=== PATIENT | female | born 1990 | race African-American/Black ===

== ENCOUNTER 2018-06-22 07:31 | Emergency (ER) | payer OTHER, SELFPAY ==
[2018-06-22 08:22] LABS: Absolute Lymphocytes (CBC) 3.5 K/uL (0.7-4.9); Absolute Monocytes 0.6 K/uL (0.1-1.3); Basophils % 0.5 % (0-1.3); Eosinophils % 1.6 % (0-4.4); Hematocrit 38.3 % (36.0-45.0); Lymphocytes % 33.8 % (15.3-44.8); MCH 27.5 pg (27.0-35.0); MPV 8.3 fL (7.6-11.3); Monocytes % 6.1 % (3.3-12.3); RBC Red Blood Cell Count 4.68 M/uL (3.86-4.86)
[2018-06-22 08:24] LABS: Urine Bacteria <20 /HPF (<20); Urine RBC <5 /HPF (NONE SEEN)
[2018-06-22 08:25] LABS: Urine Culture Reflex Order NOT NEEDED; Urine Mucus 3+ /HPF (NONE SEEN)
[2018-06-22 08:52] LABS: ALT/SGPT 16 U/L (12-78); AST/SGOT 13 U/L (15-37); Albumin 3.9 g/dL (3.4-5.0); Alkaline Phosphatase 122 U/L (45-117); BUN Blood Urea Nitrogen 10 mg/dL (7-18); Bicarbonate 28 mmol/L (21-32); Bilirubin Direct < 0.1 mg/dL (0-0.2); Bilirubin Total 0.3 mg/dL (0.2-1.0); Glucose Level 93 mg/dL (74-106); Lipase 117 U/L (73-393); Potassium 3.5 mmol/L (3.5-5.1); Protein, Total 7.2 g/dL (6.4-8.2); Sodium Level 141 mmol/L (136-145)
--- NOTE | 2018-06-22 09:33 | RAD REPORT ---
EXAM DESCRIPTION: CT - Abdomen Pelvis W Contrast - 06/22/2018 9:07 am CLINICAL HISTORY: Right lower quadrant burning pain with urination COMPARISON: CT imaging March 2013 TECHNIQUE: Biphasic, helical CT imaging of the abdomen and pelvis was performed following 100 ml non -ionic IV contrast. Oral contrast was given. All CT scans are performed using dose optimization technique as appropriate and may include automated exposure control or mA/KV adjustment according to patient size. FINDINGS: No suspicious findings in the lung bases. The liver, spleen, and pancreas show no suspicious findings. Gallbladder is contracted. No biliary tr ee dilatation. Symmetric renal function is seen with no hydronephrosis or suspicious renal mass. Left kidney is larg er than the right similar to 2013. No focal finding to suspect pyelonephritis. A small cyst is presen t in the posterior mid right kidney. Urinary bladder is contracted which accentuates wall thickness. Cystitis is unlikely. Uterus and left ovary show no suspicious findings. Small 12 mm sized cysts or f ollicles seen on the left. Right ovary contains a 2 centimeter cyst. No ovarian cyst rupture or hemor rhage. No fallopian tube dilatation. No dilated bowel loops or bowel wall thickening. No appendicitis findings. No acute GI process identi fiable. No free air, free fluid or inflammatory stranding. No mass or bulky lymphadenopathy. Patient has a very small umbilical hernia not regarded as significant. No adrenal abnormality. No suspicious bony findings. IMPRESSION: No pyelonephritis or acute finding identifiable. 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 No appendicitis or acute GI finding.
[2018-06-22 09:36] LABS: Urine Blood NEGATIVE (NEG); Urine Glucose NEGATIVE (NEG); Urine Protein NEGATIVE (NEG)
--- NOTE | 2018-06-22 09:42 | ER ---
Nurse's Notes [facility] Name: Colleen Lee Age: 27 yrs Sex: Female : 1990 Arrival Date: 06/22/2018 Time: 07:34 Bed 13 Private MD: Sourav Ascencio B Diagnosis: Lower abdominal pain, unspecified;Unspecified ovarian cysts Presentation: 06/22 07:40 Presenting complaint: Patient states: Burning and pain to the RLQ with urination x 2 jl7 days. Transition of care: patient was not received from another setting of care. Onset of symptoms was June 20, 2018. Risk Assessment: Do you want to hurt yourself or someone else? Patient reports no desire to harm self or others. Initial Sepsis Screen: Does the patient meet any 2 criteria? No. Patient's initial sepsis screen is negative. Does the patient have a suspected source of infection? No. Patient's initial sepsis screen is negative. Care prior to arrival: None. 07:40 Method Of Arrival: Ambulatory jl7 07:40 Acuity: CURTIS 3 jl7 Triage Assessment: 07:42 General: Appears in no apparent distress. uncomfortable, Behavior is calm, cooperative, jl7 appropriate for age. Pain: Complains of pain in right lower quadrant Pain does not radiate. Pain currently is 6 out of 10 on a pain scale. Quality of pain is described as pressure, Pain began 2-3 days ago. Is continuous. EENT: No signs and/or symptoms were reported regarding the EENT system. Neuro: Level of Consciousness is awake, alert, obeys commands, Oriented to person, place, time, situation. Cardiovascular: Patient's skin is warm and dry. Respiratory: Airway is patent Respiratory effort is even, unlabored, Respiratory pattern is regular, symmetrical. GI: Abdomen is round non-distended, Patient currently denies diarrhea, nausea, vomiting. : Reports burning with urination, pain in right lower quadrant(s). Derm: Skin is pink, warm \T\ dry. 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 - Social history:: Smoking status: Patient/guardian denies using tobacco. - Ebola Screening: : No symptoms or risks identified at this time. - Family history:: not pertinent. - Hospitalizations: : No recent hospitalization is reported. Screenin:46 Abuse screen: Denies threats or abuse. Denies injuries from another. Nutritional jl7 screening: No deficits noted. Tuberculosis screening: No symptoms or risk factors identified. Fall Risk None identified. Assessment: 08:40 Reassessment: Patient appears in no apparent distress at this time. No changes from jl7 previously documented assessment. Patient and/or family updated on plan of care and expected duration. Pain level reassessed. Patient is alert, oriented x 3, equal unlabored respirations, skin warm/dry/pink. 09:40 Reassessment: Patient and/or family updated on plan of care and expected duration. Pain jl7 level reassessed. Patient is alert, oriented x 3, equal unlabored respirations, skin warm/dry/pink. Vital Signs: 07:42 BP 175 / 108; Pulse 89; Resp 17; Temp 98.2(O); Pulse Ox 100% ; Weight 92.99 kg; Height jl7 5 ft. 4 in. (162.56 cm); Pain 6/10; 08:10 BP 144 / 100; Pulse 78; Resp 16 S; Pulse Ox 98% on R/A; jl7 09:20 BP 129 / 87; Pulse 86; Resp 17; Pulse Ox 94% on R/A; mh5 10:04 BP 130 / 85; Pulse 86; Resp 16 S; Pulse Ox 98% on R/A; jl7 07:42 Body Mass Index 35.19 (92.99 kg, 162.56 cm) jl7 ED Course: 07:34 Patient arrived in ED. mr 07:34 Sourav Ascencio MD is Private Physician. mr 07:37 Francisco Gonzales MD is Attending Physician. rn 07:40 Fco Demarco RN is Primary Nurse. jl7 07:41 Triage completed. jl7 07:42 Arm band placed on right wrist. jl7 07:46 Patient has correct armband on for positive identification. Bed in low position. Call jl light in reach. Side rails up X 1. Pulse ox on. NIBP on. Warm blanket given. 08:00 Urine --Ancillary (enter results) Sent. [facility] 08:00 Urine Dipstick--Ancillary (enter results) Sent. [facility] 08:00 Urine Microscopic Only Sent. [facility] 08:08 Initial lab(s) drawn, by me, sent to lab. Urine collected: clean catch specimen, clear. jl7 Inserted saline lock: 22 gauge in right antecubital area, using aseptic technique. Blood collected. 09:07 CT completed. Patient tolerated procedure well. Patient moved to CT via wheelchair. Patient moved back from CT. 09:07 CT Abd/Pelvis - W/Contrast In Process Unspecified. EDNE 10:04 No provider procedures requiring assistance completed. IV discontinued, intact, jl7 bleeding controlled, No redness/swelling at site. Pressure dressing applied. Administered Medications: No medications were administered Outcome: 09:42 Discharge ordered by . rn 10:04 Discharged to home ambulatory. jl7 10:04 Condition: stable 10:04 Discharge instructions given to patient, Instructed on discharge instructions, follow up and referral plans. Demonstrated understanding of instructions, follow-up care. 10:05 Patient left the ED. jl7 Signatures: Dispatcher [employer] EDNE Chantal Lara Anuj, Francisco Claros MD MD rn Martinez, Maria Fco Wilson RN RN jl7
--- NOTE | 2018-06-22 09:42 | EDPHYS ---
Physician Documentation [facility] Name: Colleen Lee Age: 27 yrs Sex: Female : 1990 Arrival Date: 06/22/2018 Time: 07:34 Bed 13 Private MD: Sourav Ascencio B ED Physician Francisco Gonzales HPI: 06/22 07:47 This 27 yrs old Black Female presents to ER via Ambulatory with complaints of Abdominal rn Pain. 07:47 The patient presents with abdominal pain in the lower abdomen. Onset: The rn symptoms/episode began/occurred 2 day(s) ago. The symptoms do not radiate. Associated signs and symptoms: Pertinent positives: dysuria, Pertinent negatives: diarrhea, fever, nausea, vomiting. The symptoms are described as achy, burning. Severity of pain: At its worst the pain was mild in the emergency department the pain is unchanged. The patient has not experienced similar symptoms in the past. The patient has not recently seen a physician. Reports lower abd pain, burning, and dysuria. No fever/vomiting/diarrhea. Feels identical to previous urine infections. . 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 - Social history:: Smoking status: Patient/guardian denies using tobacco. - Ebola Screening: : No symptoms or risks identified at this time. - Family history:: not pertinent. - Hospitalizations: : No recent hospitalization is reported. ROS: 07:47 Constitutional: Negative for fever, chills, and weight loss, Eyes: Negative for injury, rn pain, redness, and discharge, Cardiovascular: Negative for chest pain, palpitations, and edema, Respiratory: Negative for shortness of breath, cough, wheezing, and pleuritic chest pain, Abdomen/GI: Negative for nausea, vomiting, diarrhea, and constipation, : + dysuria MS/Extremity: Negative for injury and deformity, Skin: Negative for injury, rash, and discoloration, Neuro: Negative for headache, weakness, numbness, tingling, and seizure. Exam: 07:47 Constitutional: This is a well developed, well nourished patient who is awake, alert, rn and in no acute distress. Walked to room and bathroom without difficulty. Cardiovascular: Regular rate and rhythm, No pulse deficits. Respiratory: Lungs have equal breath sounds bilaterally, clear to auscultation Abdomen/GI: soft, mild suprapubic tenderness, no rebound Back: No spinal tenderness. No costovertebral tenderness. Full range of motion. Skin: Warm, dry with normal turgor. Normal color with no rashes, no lesions, and no evidence of cellulitis. MS/ Extremity: Pulses equal, no cyanosis. Neurovascular intact. Full, normal range of motion. Equal circumference. Neuro: Awake and alert, GCS 15, oriented to person, place, time, and situation. Cranial nerves II-XII grossly intact. Motor strength 5/5 in all extremities. Sensory grossly intact. Cerebellar exam normal. Normal gait. Vital Signs: 07:42 BP 175 / 108; Pulse 89; Resp 17; Temp 98.2(O); Pulse Ox 100% ; Weight 92.99 kg; Height jl7 5 ft. 4 in. (162.56 cm); Pain 6/10; 08:10 BP 144 / 100; Pulse 78; Resp 16 S; Pulse Ox 98% on R/A; jl7 09:20 BP 129 / 87; Pulse 86; Resp 17; Pulse Ox 94% on R/A; mh5 10:04 BP 130 / 85; Pulse 86; Resp 16 S; Pulse Ox 98% on R/A; jl7 07:42 Body Mass Index 35.19 (92.99 kg, 162.56 cm) 7 MDM: 07:38 Patient medically screened. rn 09:40 Differential diagnosis: appendicitis, non-specific abd pain, Ureterolithiasis, urinary rn tract infection. Data reviewed: vital signs, nurses notes, lab test result(s), radiologic studies, CT scan, and as a result, I will discharge patient. Counseling: I had a detailed discussion with the patient and/or guardian regarding: the historical points, exam findings, and any diagnostic results supporting the discharge/admit diagnosis, lab results, radiology results, the need for outpatient follow up, to return to the emergency department if symptoms worsen or persist or if there are any questions or concerns that arise at home. Special discussion: Based on the patient's Hx, exam, and Dx evaluation, there is no indication for emergent surgery or inpatient Tx. It is understood by the patient/guardian that if the Sx's persist or worsen they need to return immediately for re-evaluation. I discussed with the patient/guardian in detail that at this point there is no indication for admission to the hospital. It is understood, however, that if the symptoms persist or worsen the patient needs to return immediately for re-evaluation. 06/22 07:52 Order name: Urine Microscopic Only; Complete Time: 08:51 mh5 06/22 07:55 Order name: Urine Dipstick--Ancillary (enter results); Complete Time: 09:42 eb 06/22 07:55 Order name: Urine --Ancillary (enter results); Complete Time: 09:42 eb 06/22 07:57 Order name: Basic Metabolic Panel; Complete Time: 09:00 rn 06/22 07:57 Order name: CBC with Diff; Complete Time: 08:51 rn 06/22 07:57 Order name: Hepatic Function; Complete Time: 09:00 06/22 07:44 Order name: Urine Dipstick-Ancillary (obtain specimen); Complete Time: 07:47 rn 06/22 07:44 Order name: Urine Test (obtain specimen); Complete Time: 07:47 rn 06/22 07:57 Order name: Lipase; Complete Time: 09:00 06/22 07:57 Order name: IV Saline Lock; Complete Time: 08:08 rn 06/22 07:57 Order name: Labs collected and sent; Complete Time: 08:08 06/22 07:57 Order name: CT Abd/Pelvis - W/Contrast; Complete Time: 09:34 rn Administered Medications: No medications were administered Disposition: 06/22/18 09:42 Discharged to Home. Impression: Lower abdominal pain, unspecified, Unspecified ovarian cysts. - Condition is Stable. - Discharge Instructions: Abdominal Pain, Adult, Ovarian Cyst. - Medication Reconciliation Form, Thank You Letter, Antibiotic Education, Prescription Opioid Use, Work release form form. - Follow up: Private Physician; When: As needed; Reason: Recheck today's complaints, Re-evaluation by your physician. - Problem is new. - Symptoms have improved. Signatures: Dispatcher [employer] EDFrancisco Alaniz MD MD rn Leal, Jahala, RN RN jl7 Corrections: (The following items were deleted from the chart) 10:05 09:42 06/22/2018 09:42 Discharged to Home. Impression: Lower abdominal pain, jl7 unspecified; Unspecified ovarian cysts. Condition is Stable. Forms are Medication Reconciliation Form, Thank You Letter, Antibiotic Education, Prescription Opioid Use. Follow up: Private Physician; When: As needed; Reason: Recheck today's complaints, Re-evaluation by your physician. Problem is new. Symptoms have improved. rn
== END 2018-06-22 10:05 | disposition home or self-care (01) ==
LOC: ER 07:31
DX: N83.209 Unspecified ovarian cyst, unspecified side (principal)
CPT/HCPCS: 36415; 74177; 80048; 80076; 81003; 81015; 81025; 83690; 85025; 99284; Q9967

== ENCOUNTER 2018-11-05 05:44 | Emergency (ER) | payer SELFPAY ==
--- OUTSIDE RECORDS SUMMARY | 2018-11-05 05:46 | XMS REPORT ---
:1990 [facility] Address [address] [place] [address] Dr. Soto [address] [place] [id number] Care Team Providers Name Role Phone Unavailable Unavailable Unavailable Problems This patient has no known problems. Allergies, Adverse Reactions, Alerts This patient has no known allergies or adverse reactions. Medications This patient has no known medications.
[2018-11-05] MEDS ORDERED: ONDANSETRON 4 MG (ODT) TAB ONE (06:25)
--- NOTE | 2018-11-05 06:38 | ER ---
Nurse's Notes [facility] Name: Colleen Lee Age: 28 yrs Sex: Female : 1990 Arrival Date: 11/05/2018 Time: 05:46 Bed 6 Private MD: Diagnosis: Vomiting;Diarrhea, unspecified Presentation: 11/05 06:04 Presenting complaint: Patient states: c/o abdominal cramping with diarrhea and vomiting tl1 approx 5 times per day for the last 2 days and burning with urination. Transition of care: patient was not received from another setting of care. Onset of symptoms was November 03, 2018. Risk Assessment: Do you want to hurt yourself or someone else? Patient reports no desire to harm self or others. Initial Sepsis Screen: Does the patient meet any 2 criteria? No. Patient's initial sepsis screen is negative. Does the patient have a suspected source of infection? No. Patient's initial sepsis screen is negative. Care prior to arrival: None. 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 - Social history:: Smoking status: Patient/guardian denies using tobacco, never smoked. - Family history:: not pertinent. - Ebola Screening: : Patient negative for fever greater than or equal to 101.5 degrees Fahrenheit, and additional compatible Ebola Virus Disease symptoms Patient denies exposure to infectious person Patient denies travel to an Ebola-affected area in the 21 days before illness onset. Screenin:10 Abuse screen: Denies threats or abuse. Denies injuries from another. Nutritional tl1 screening: No deficits noted. Tuberculosis screening: No symptoms or risk factors identified. Fall Risk None identified. Assessment: 06:09 General: Appears in no apparent distress. obese, Behavior is calm, cooperative, tl1 appropriate for age. Pain: Complains of pain in abdomen Pain currently is 3 out of 10 on a pain scale. Quality of pain is described as crampy. Neuro: Level of Consciousness is awake, alert, obeys commands. Cardiovascular: No deficits noted. Denies chest pain. Respiratory: Airway is patent Trachea midline Respiratory effort is even, unlabored, Breath sounds are clear bilaterally. GI: Abdomen is non-distended, obese, Bowel sounds present X 4 quads. Abd is soft and non tender X 4 quads. : Reports burning with urination, urgency. EENT: No signs and/or symptoms were reported regarding the EENT system. Derm: No signs and/or symptoms reported regarding the dermatologic system. Musculoskeletal: No signs and/or symptoms reported regarding the musculoskeletal system. Vital Signs: 06:06 BP 147 / 103; Pulse 84; Resp 16; Temp 98.4; Pulse Ox 100% ; Weight 90.72 kg; Height 5 tl1 ft. 4 in. (162.56 cm); Pain 3/10; 06:07 BP 147 / 103 Supine; Pulse 84; tl1 06:07 BP 160 / 103 Sitting; Pulse 76; tl1 06:07 BP 162 / 102 Standing; Pulse 82; tl1 06:52 BP 141 / 98; Pulse 75; Resp 16; Temp 98.4; Pulse Ox 100% ; Pain 2/10; tl1 06:06 Body Mass Index 34.33 (90.72 kg, 162.56 cm) tl1 ED Course: 05:46 Patient arrived in ED. ag3 05:54 David Haley MD is Attending Physician. arianne 06:04 Angie Morocho RN is Primary Nurse. tl1 06:06 Triage completed. tl1 06:08 Arm band placed on right wrist. tl1 06:08 Bed in low position. Call light in reach. Side rails up X 1. tl1 06:54 No provider procedures requiring assistance completed. Patient did not have IV access tl1 during this emergency room visit. Administered Medications: 06:12 CANCELLED (Duplicate Order): Zofran 4 mg IVP once; over 2 minutes arianne 06:15 Drug: Zofran 4 mg Route: PO; tl1 06:56 Follow up: Response: No adverse reaction; Marked relief of symptoms; Nausea is decreasedtl1 Outcome: 06:37 Discharge ordered by . arianne 06:54 Discharged to home ambulatory. tl1 06:54 Condition: good 06:54 Discharge instructions given to patient, Instructed on discharge instructions, follow up and referral plans. medication usage, Demonstrated understanding of instructions, follow-up care, medications, Prescriptions given X 1. 06:57 Patient left the ED. tl1 Signatures: David Haley MD MD cha Lasagna, Tonya RN RN tl1 Christiana Gregorio3
--- NOTE | 2018-11-05 06:38 | EDPHYS ---
Physician Documentation [facility] Name: Colleen Lee Age: 28 yrs Sex: Female : 1990 Arrival Date: 11/05/2018 Time: 05:46 Bed 6 Private MD: ED Physician David Haley HPI: 11/05 06:00 This 28 yrs old Black Female presents to ER via Unassigned with complaints of Diarrhea. [facility] 06:00 The patient presents to the emergency department with nausea, vomiting, 10 times since [facility] the onset of symptoms. Onset: The symptoms/episode began/occurred 3 day(s) ago. Possible causes: unknown. The symptoms are aggravated by nothing. The symptoms are alleviated by nothing. Associated signs and symptoms: The patient has no apparent associated signs or symptoms. Severity of symptoms: At their worst the symptoms were mild in the emergency department the symptoms are unchanged. The patient has not experienced similar symptoms in the past. 06:05 nausea and vomiting 5x day of each. 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 - Social history:: Smoking status: Patient/guardian denies using tobacco, never smoked. - Family history:: not pertinent. - Ebola Screening: : Patient negative for fever greater than or equal to 101.5 degrees Fahrenheit, and additional compatible Ebola Virus Disease symptoms Patient denies exposure to infectious person Patient denies travel to an Ebola-affected area in the 21 days before illness onset. ROS: 06:02 Constitutional: Negative for fever, chills, and weight loss, Eyes: Negative for injury, arianne pain, redness, and discharge, ENT: Negative for injury, pain, and discharge, Neck: Negative for injury, pain, and swelling, Cardiovascular: Negative for chest pain, palpitations, and edema, Respiratory: Negative for shortness of breath, cough, wheezing, and pleuritic chest pain, Back: Negative for injury and pain, : Negative for injury, bleeding, discharge, and swelling, MS/Extremity: Negative for injury and deformity, Skin: Negative for injury, rash, and discoloration, Neuro: Negative for headache, weakness, numbness, tingling, and seizure, Psych: Negative for depression, anxiety, suicide ideation, homicidal ideation, and hallucinations, Allergy/Immunology: Negative for hives, rash, and allergies, Endocrine: Negative for neck swelling, polydipsia, polyuria, polyphagia, and marked weight changes, Hematologic/Lymphatic: Negative for swollen nodes, abnormal bleeding, and unusual bruising. 06:02 Abdomen/GI: Positive for nausea and vomiting, diarrhea. Exam: 06:02 Constitutional: This is a well developed, well nourished patient who is awake, alert, arianne and in no acute distress. Head/Face: Normocephalic, atraumatic. Eyes: Pupils equal round and reactive to light, extra-ocular motions intact. Lids and lashes normal. Conjunctiva and sclera are non-icteric and not injected. Cornea within normal limits. Periorbital areas with no swelling, redness, or edema. ENT: Nares patent. No nasal discharge, no septal abnormalities noted. Tympanic membranes are normal and external auditory canals are clear. Oropharynx with no redness, swelling, or masses, exudates, or evidence of obstruction, uvula midline. Mucous membranes moist. Neck: Trachea midline, no thyromegaly or masses palpated, and no cervical lymphadenopathy. Supple, full range of motion without nuchal rigidity, or vertebral point tenderness. No Meningismus. Chest/axilla: Normal chest wall appearance and motion. Nontender with no deformity. No lesions are appreciated. Cardiovascular: Regular rate and rhythm with a normal S1 and S2. No gallops, murmurs, or rubs. Normal PMI, no JVD. No pulse deficits. Respiratory: Lungs have equal breath sounds bilaterally, clear to auscultation and percussion. No rales, rhonchi or wheezes noted. No increased work of breathing, no retractions or nasal flaring. Back: No spinal tenderness. No costovertebral tenderness. Full range of motion. Female : Normal external genitalia. Skin: Warm, dry with normal turgor. Normal color with no rashes, no lesions, and no evidence of cellulitis. MS/ Extremity: Pulses equal, no cyanosis. Neurovascular intact. Full, normal range of motion. Neuro: Awake and alert, GCS 15, oriented to person, place, time, and situation. Cranial nerves II-XII grossly intact. Motor strength 5/5 in all extremities. Sensory grossly intact. Cerebellar exam normal. Normal gait. Psych: Awake, alert, with orientation to person, place and time. Behavior, mood, and affect are within normal limits. 06:02 Abdomen/GI: Inspection: abdomen appears normal, Bowel sounds: normal, Palpation: nontender, Liver: no appreciated palpable abnormalities, Hernia: not appreciated. Vital Signs: 06:06 BP 147 / 103; Pulse 84; Resp 16; Temp 98.4; Pulse Ox 100% ; Weight 90.72 kg; Height 5 tl1 ft. 4 in. (162.56 cm); Pain 3/10; 06:07 BP 147 / 103 Supine; Pulse 84; tl1 06:07 BP 160 / 103 Sitting; Pulse 76; tl1 06:07 BP 162 / 102 Standing; Pulse 82; tl1 06:52 BP 141 / 98; Pulse 75; Resp 16; Temp 98.4; Pulse Ox 100% ; Pain 2/10; tl1 06:06 Body Mass Index 34.33 (90.72 kg, 162.56 cm) tl1 MDM: 05:54 Patient medically screened. [facility] 06:06 Data reviewed: vital signs, nurses notes, lab test result(s), urinalysis. [facility] 11/05 06:00 Order name: Urine Culture [facility] 11/05 06:23 Order name: Urine Dipstick--Ancillary (enter results) [facility] 11/05 06:00 Order name: Urine Dipstick-Ancillary (obtain specimen); Complete Time: 06:16 [facility] 11/05 06:23 Order name: Urine --Ancillary (enter results) [facility] 11/05 06:00 Order name: Urine Test (obtain specimen); Complete Time: 06:16 [facility] 11/05 06:00 Order name: Orthostatics; Complete Time: 06:07 [facility] Administered Medications: 06:12 CANCELLED (Duplicate Order): Zofran 4 mg IVP once; over 2 minutes [facility] 06:15 Drug: Zofran 4 mg Route: PO; tl1 06:56 Follow up: Response: No adverse reaction; Marked relief of symptoms; Nausea is decreasedtl1 Disposition: 11/05/18 06:37 Discharged to Home. Impression: Vomiting, Diarrhea, unspecified. - Condition is Stable. - Discharge Instructions: Food Choices to Help Relieve Diarrhea, Adult, Diarrhea, Adult, Nausea and Vomiting, Adult, Nausea and Vomiting, Adult, [id number], Diarrhea, Adult, [id number]. - Prescriptions for Zofran 4 mg Oral Tablet - take 1 tablet by ORAL route every 12 hours As needed; 20 tablet. - Medication Reconciliation Form, Thank You Letter, Antibiotic Education, Prescription Opioid Use, Work release form form. - Follow up: Private Physician; When: 2 - 3 days; Reason: Recheck today's complaints, Continuance of care, Re-evaluation by your physician. - Problem is new. - Symptoms have improved. Signatures: Dispatcher [employer] EDMS David Haley MD MD cha Lasagna, Tonya RN RN tl1 Corrections: (The following items were deleted from the chart) 06:12 06:00 Zofran 4 mg IVP once; over 2 minutes ordered. arianne acuña 06:57 06:37 11/05/2018 06:37 Discharged to Home. Impression: Vomiting; Diarrhea, unspecified. tl1 Condition is Stable. Discharge Instructions: Food Choices to Help Relieve Diarrhea, Adult, Diarrhea, Adult, Nausea and Vomiting, Adult, Nausea and Vomiting, Adult, [id number]-[id number], Diarrhea, Adult, Svhw-[id number]-[id number]. Prescriptions for Zofran 4 mg Oral Tablet - take 1 tablet by ORAL route every 12 hours As needed; 20 tablet. and Forms are Medication Reconciliation Form, Thank You Letter, Antibiotic Education, Prescription Opioid Use. Follow up: Private Physician; When: 2 - 3 days; Reason: Recheck today's complaints, Continuance of care, Re-evaluation by your physician. Problem is new. Symptoms have improved. [facility]
[2018-11-05 08:57] LABS: Urine Blood NEGATIVE (NEG); Urine Glucose NEGATIVE (NEG); Urine Protein NEGATIVE (NEG); Urine pH 5.5 (5.0-7.0)
== END 2018-11-05 06:57 | disposition home or self-care (01) ==
LOC: ER 05:44
DX: R19.7 Diarrhea, unspecified (principal)
CPT/HCPCS: 81003; 81025; 87086; 87088; 99283

== ENCOUNTER 2019-01-05 06:18 | Emergency (ER) | payer SELFPAY ==
--- OUTSIDE RECORDS SUMMARY | 2019-01-05 06:21 | XMS REPORT ---
:1990 [facility] Address [address] [place] [address] Dr. Soto [address] [place] [id number] Care Team Providers Name Role Phone Unavailable Unavailable Unavailable Problems This patient has no known problems. Allergies, Adverse Reactions, Alerts This patient has no known allergies or adverse reactions. Medications This patient has no known medications.
--- NOTE | 2019-01-05 07:19 | RAD REPORT ---
EXAM DESCRIPTION: Marquita Garcia (2 Views)01/05/2019 7:12 am CLINICAL HISTORY: Cough COMPARISON: 2016 FINDINGS: The lungs appear clear of acute infiltrate. The heart is normal size. Mild prominence of the aortic knob is without significant change IMPRESSION: No acute abnormalities displayed
--- NOTE | 2019-01-05 07:24 | EDPHYS ---
Physician Documentation [facility] Name: Colleen Lee Age: 28 yrs Sex: Female : 1990 Arrival Date: 01/05/2019 Time: 06:19 Bed 6 Private MD: Sourav Ascencio B ED Physician David Haley HPI: 01/05 06:58 This 28 yrs old Black Female presents to ER via Ambulatory with complaints of Fever, kb Cough. 06:58 The patient or guardian reports cough, that is intermittent, described as mild, with no kb sputum, flu symptoms, low-grade fever, myalgias. Onset: The symptoms/episode began/occurred yesterday. Severity of symptoms: At their worst the symptoms were moderate, in the emergency department the symptoms are unchanged. Modifying factors: The symptoms are alleviated by nothing, the symptoms are aggravated by nothing. Associated signs and symptoms: Pertinent positives: fever, rhinorrhea. The patient has not experienced similar symptoms in the past. The patient has not recently seen a physician. Pt reports cough, congestion, fever and body aches since yesterday. States she was having intermittent numbness in her fingertips since yesterday as well. Numbness comes on during a coughing fit . 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 - Social history:: Smoking status: unknown. - Ebola Screening: : No symptoms or risks identified at this time. ROS: 06:43 ENT: Negative for injury, pain, and discharge, Neck: Negative for injury, pain, and kb swelling, Cardiovascular: Negative for chest pain, palpitations, and edema, Abdomen/GI: Negative for abdominal pain, nausea, vomiting, diarrhea, and constipation, Back: Negative for injury and pain, MS/Extremity: Negative for injury and deformity, Skin: Negative for injury, rash, and discoloration. 06:43 Constitutional: Positive for body aches, fever, malaise, Negative for poor PO intake, weight loss. 06:43 Respiratory: Positive for cough, Negative for dyspnea on exertion, hemoptysis, orthopnea, pleurisy, shortness of breath, sputum production, wheezing. 06:57 Neuro: Positive for intermittent numbness to fingertips. kb Exam: 06:43 Constitutional: This is a well developed, well nourished patient who is awake, alert, kb and in no acute distress. Head/Face: Normocephalic, atraumatic. ENT: Nares patent. No nasal discharge, no septal abnormalities noted. Tympanic membranes are normal and external auditory canals are clear. Oropharynx with no redness, swelling, or masses, exudates, or evidence of obstruction, uvula midline. Mucous membranes moist. Neck: Trachea midline, no thyromegaly or masses palpated, and no cervical lymphadenopathy. Supple, full range of motion without nuchal rigidity, or vertebral point tenderness. No Meningismus. Chest/axilla: Normal chest wall appearance and motion. Nontender with no deformity. No lesions are appreciated. Cardiovascular: Regular rate and rhythm with a normal S1 and S2. No gallops, murmurs, or rubs. Normal PMI, no JVD. No pulse deficits. Respiratory: Lungs have equal breath sounds bilaterally, clear to auscultation and percussion. No rales, rhonchi or wheezes noted. No increased work of breathing, no retractions or nasal flaring. Abdomen/GI: Soft, non-tender, with normal bowel sounds. No distension or tympany. No guarding or rebound. No evidence of tenderness throughout. Back: No spinal tenderness. No costovertebral tenderness. Full range of motion. Skin: Warm, dry with normal turgor. Normal color with no rashes, no lesions, and no evidence of cellulitis. MS/ Extremity: Pulses equal, no cyanosis. Neurovascular intact. Full, normal range of motion. Neuro: Awake and alert, GCS 15, oriented to person, place, time, and situation. Cranial nerves II-XII grossly intact. Motor strength 5/5 in all extremities. Sensory grossly intact. Cerebellar exam normal. Normal gait. Vital Signs: 06:36 BP 149 / 102; Pulse 89; Resp 16 S; Temp 98.6(O); Pulse Ox 100% on R/A; Weight 95.25 kg bb (R); Height 5 ft. 4 in. (162.56 cm) (R); Pain 0/10; 06:36 Body Mass Index 36.05 (95.25 kg, 162.56 cm) bb MDM: 06:26 Patient medically screened. kb 06:58 Data reviewed: vital signs, nurses notes. Data interpreted: Pulse oximetry: on room air kb is 100 %. Interpretation: normal. 07:22 Counseling: I had a detailed discussion with the patient and/or guardian regarding: the kb historical points, exam findings, and any diagnostic results supporting the discharge/admit diagnosis, lab results, radiology results, the need for outpatient follow up, a family practitioner, to return to the emergency department if symptoms worsen or persist or if there are any questions or concerns that arise at home. 01/05 06:30 Order name: Flu; Complete Time: 07:07 kb 01/05 06:30 Order name: Strep; Complete Time: 07:00 kb 01/05 06:30 Order name: Chest Pa And Lat (2 Views) XRAY; Complete Time: 07:21 kb 01/05 07:03 Order name: Throat Culture EDMS Administered Medications: No medications were administered Disposition: 13:41 Co-signature as Attending Physician, David Haley MD I agree with the assessment and [facility] plan of care. Disposition: 01/05/19 07:22 Discharged to Home. Impression: Acute upper respiratory infection, unspecified. - Condition is Stable. - Discharge Instructions: Upper Respiratory Infection, Adult, Gqok-ed-Hioq, Viral Respiratory Infection, Iphz-Td-Pkny. - Medication Reconciliation Form, Thank You Letter, Antibiotic Education, Prescription Opioid Use, Work release form form. - Follow up: Emergency Department; When: As needed; Reason: Worsening of condition. Follow up: Private Physician; When: 2 - 3 days; Reason: Recheck today's complaints, Continuance of care, Re-evaluation by your physician. Signatures: Dispatcher [employer] EDMS Shabana Szymanski, ACCOUNTING MACHINE MECHANIC-C ACCOUNTING MACHINE MECHANIC-David Hooper MD MD cha Ballard, Brenda, CLARITA RN Joaquina Boss, CLARITA mendoza Corrections: (The following items were deleted from the chart) 07:36 07:22 01/05/2019 07:22 Discharged to Home. Impression: Acute upper respiratory hb infection, unspecified. Condition is Stable. Forms are Medication Reconciliation Form, Thank You Letter, Antibiotic Education, Prescription Opioid Use. Follow up: Emergency Department; When: As needed; Reason: Worsening of condition. Follow up: Private Physician; When: 2 - 3 days; Reason: Recheck today's complaints, Continuance of care, Re-evaluation by your physician. kb
--- NOTE | 2019-01-05 07:24 | ER ---
Nurse's Notes [facility] Name: Colleen Lee Age: 28 yrs Sex: Female : 1990 Arrival Date: 01/05/2019 Time: 06:19 Bed 6 Private MD: Sourav Ascencio B Diagnosis: Acute upper respiratory infection, unspecified Presentation: 01/05 06:33 Presenting complaint: Patient states: she has had a cough and body aches since bb and yesterday she started having a fever and intermittent numbness to bilateral fingers, pt is a [employer] and said her fingers start tingling when she is going to lift. Transition of care: patient was not received from another setting of care. Onset of symptoms was December 28, 2018. Risk Assessment: Do you want to hurt yourself or someone else? Patient reports no desire to harm self or others. Initial Sepsis Screen: Does the patient meet any 2 criteria? No. Patient's initial sepsis screen is negative. Does the patient have a suspected source of infection? No. Patient's initial sepsis screen is negative. Care prior to arrival: pt took motrin 500 mg at 0500 this morning for a fever of 101. 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 - Social history:: Smoking status: unknown. - Ebola Screening: : No symptoms or risks identified at this time. Screenin:37 Abuse screen: Denies threats or abuse. Nutritional screening: No deficits noted. bb Tuberculosis screening: No symptoms or risk factors identified. Fall Risk None identified. Assessment: 06:37 General: Appears in no apparent distress. Behavior is calm, cooperative. Pain: Denies bb pain. Neuro: Level of Consciousness is awake, alert, obeys commands, Oriented to person, place, time, situation. Cardiovascular: No deficits noted. Respiratory: Respiratory effort is even, unlabored, Respiratory pattern is regular, Breath sounds are clear bilaterally. GI: No signs and/or symptoms were reported involving the gastrointestinal system. Derm: Skin is dry, Skin is normal, Skin temperature is warm. Musculoskeletal: Circulation, motion, and sensation intact. Reports numbness in bilateral fingertips. Vital Signs: 06:36 BP 149 / 102; Pulse 89; Resp 16 S; Temp 98.6(O); Pulse Ox 100% on R/A; Weight 95.25 kg bb (R); Height 5 ft. 4 in. (162.56 cm) (R); Pain 0/10; 06:36 Body Mass Index 36.05 (95.25 kg, 162.56 cm) ED Course: 06:19 Patient arrived in ED. ds1 06:19 Sourav Ascencio MD is Private Physician. ds1 06:26 Shabana Szymanski FNP-C is [facility]. kb 06:26 David Haley MD is Attending Physician. kb 06:35 Triage completed. bb 06:36 Arm band placed on Patient placed in an exam room, on a stretcher, on pulse oximetry. bb 06:37 Patient has correct armband on for positive identification. Bed in low position. Call bb light in reach. Side rails up X 1. Pulse ox on. NIBP on. 07:09 Patient moved to radiology via wheelchair. jb2 07:12 Chest Pa And Lat (2 Views) XRAY In Process Unspecified. EDMS 07:13 Throat Culture Sent. rr5 Administered Medications: No medications were administered Outcome: 07:22 Discharge ordered by MD. kb 07:36 Patient left the ED. hb Signatures: Dispatcher [employer] EDMS Shabana Szymanski FNP-C FNP-Ckb Buechter, Jesse jb2 Nadeen Lobo ds1 Liseth Bell, RN RN bb Joaquina Streeter, CLARITA RN hb Subhash Xie, RN RN rr5
== END 2019-01-05 07:36 | disposition home or self-care (01) ==
LOC: ER 06:18
DX: J06.9 Acute upper respiratory infection, unspecified (principal)
CPT/HCPCS: 71046; 87070; 87081; 87804; 99283

== ENCOUNTER 2019-02-10 10:12 | Emergency (ER) | payer SELFPAY ==
--- OUTSIDE RECORDS SUMMARY | 2019-02-10 10:14 | XMS REPORT ---
:1990 [facility] Address [address] [place] [address] Dr. Soto [address] [place] [id number] Care Team Providers Name Role Phone Unavailable Unavailable Unavailable Problems This patient has no known problems. Allergies, Adverse Reactions, Alerts This patient has no known allergies or adverse reactions. Medications This patient has no known medications.
[2019-02-10] MEDS ORDERED: CLINDAMYCIN HCL 150 MG CAP ONE (10:47)
[2019-02-10] MEDS ORDERED: KETOROLAC 30 MG/ML INJ ONE (10:47)
--- NOTE | 2019-02-10 11:05 | EDPHYS ---
Physician Documentation [facility] Name: Colleen Lee Age: 28 yrs Sex: Female : 1990 Arrival Date: 02/10/2019 Time: 10:14 Bed 14 Private MD: Sourav Ascencio B ED Physician Francisco Gonzales HPI: 02/10 10:38 This 28 yrs old Black Female presents to ER via Ambulatory with complaints of Facial kb Swelling. 10:38 The patient presents with redness, swelling. The problem is located in the lower right kb first molar (#30). Onset: The symptoms/episode began/occurred yesterday. Duration: The symptoms are continuous. Modifying factors: The symptoms are alleviated by nothing, the symptoms are aggravated by nothing. Associated signs and symptoms: Pertinent positives: pain, redness in area, swelling, Pertinent negatives: anorexia, chills, dysphagia, fever, inability to eat, nausea, vomiting. Severity of symptoms: At their worst the symptoms were moderate, in the emergency department the symptoms are unchanged. The patient has not experienced similar symptoms in the past. The patient has not recently seen a physician. Pt reports right sided facial swelling and pain. States she has a bad tooth and thinks that is the problem. Pain on palpation of gums. Pt reports she sometimes has high blood pressure and sometimes it is normal. . Historical: - Allergies: 10:28 No Known Allergies; ss - Home Meds: 10:28 None [Active]; ss - PMHx: 10:28 None; ss - PSHx: 10:28 None; ss - Immunization history:: Adult Immunizations up to date. - Social history:: Smoking status: Patient/guardian denies using tobacco. - Ebola Screening: : Patient denies exposure to infectious person Patient denies travel to an Ebola-affected area in the 21 days before illness onset. ROS: 10:32 Constitutional: Negative for fever, chills, and weight loss, Cardiovascular: Negative kb for chest pain, palpitations, and edema, Respiratory: Negative for shortness of breath, cough, wheezing, and pleuritic chest pain, Abdomen/GI: Negative for abdominal pain, nausea, vomiting, diarrhea, and constipation, MS/Extremity: Negative for injury and deformity, Skin: Negative for injury, rash, and discoloration, Neuro: Negative for headache, weakness, numbness, tingling, and seizure. 10:32 ENT: Positive for dental pain. Exam: 10:32 Constitutional: This is a well developed, well nourished patient who is awake, alert, kb and in no acute distress. Head/Face: Normocephalic, atraumatic. Neck: Trachea midline, no thyromegaly or masses palpated, and no cervical lymphadenopathy. Supple, full range of motion without nuchal rigidity, or vertebral point tenderness. No Meningismus. Chest/axilla: Normal chest wall appearance and motion. Nontender with no deformity. No lesions are appreciated. Cardiovascular: Regular rate and rhythm with a normal S1 and S2. No gallops, murmurs, or rubs. Normal PMI, no JVD. No pulse deficits. Respiratory: Lungs have equal breath sounds bilaterally, clear to auscultation and percussion. No rales, rhonchi or wheezes noted. No increased work of breathing, no retractions or nasal flaring. Abdomen/GI: Soft, non-tender, with normal bowel sounds. No distension or tympany. No guarding or rebound. No evidence of tenderness throughout. Skin: Warm, dry with normal turgor. Normal color with no rashes, no lesions, and no evidence of cellulitis. MS/ Extremity: Pulses equal, no cyanosis. Neurovascular intact. Full, normal range of motion. Neuro: Awake and alert, GCS 15, oriented to person, place, time, and situation. Cranial nerves II-XII grossly intact. Motor strength 5/5 in all extremities. Sensory grossly intact. Cerebellar exam normal. Normal gait. 10:32 ENT: Dental exam: cellulitis, that is mild, specifically in the lower right first molar (#30), gum swelling, that is moderate, specifically in the lower right first molar (#30), pain, that is moderate, specifically in the lower right first molar (#30). Vital Signs: 10:28 BP 169 / 125; Pulse 79; Resp 15; Temp 97.5(TE); Pulse Ox 100% on R/A; Weight 92.99 kg; ss Height 5 ft. 4 in. (162.56 cm); Pain 10; 11:02 BP 174 / 122; Pulse 69; Resp 16; Pulse Ox 98% on R/A; la1 11:03 BP 146 / 104; la1 10:28 Body Mass Index 35.19 (92.99 kg, 162.56 cm) MDM: 10:20 Patient medically screened. kb 10:37 Data reviewed: vital signs, nurses notes. Data interpreted: Pulse oximetry: on room air kb is 100 %. Interpretation: normal. 11:04 Counseling: I had a detailed discussion with the patient and/or guardian regarding: the kb historical points, exam findings, and any diagnostic results supporting the discharge/admit diagnosis, the presence of at least one elevated blood pressure reading (>120/80) during this emergency department visit, the need for outpatient follow up, a dentist, to return to the emergency department if symptoms worsen or persist or if there are any questions or concerns that arise at home. Special discussion: I have referred the patient to see his PCP for further evaluation of high blood pressure. Administered Medications: 10:37 Drug: Clindamycin 600 mg Route: PO; la1 11:08 Follow up: Response: No adverse reaction la1 10:37 Drug: TORadol 60 mg Route: IM; Site: right gluteus; la1 11:08 Follow up: Response: No adverse reaction; Pain is decreased la1 Disposition: 11:41 Co-signature as Attending Physician, Francisco Gonzales MD. rn Disposition: 02/10/19 11:04 Discharged to Home. Impression: Periapical abscess without sinus. - Condition is Stable. - Discharge Instructions: Dental Pain, [id number], Dental Abscess, [id number]. - Prescriptions for Clindamycin HCl 300 mg Oral Capsule - take 1 capsule by ORAL route every 6 hours for 10 days; 40 capsule. - Medication Reconciliation Form, Thank You Letter, Antibiotic Education, Prescription Opioid Use form. - Follow up: Emergency Department; When: As needed; Reason: Worsening of condition. Follow up: Private Physician; When: 2 - 3 days; Reason: Recheck today's complaints, Continuance of care, Re-evaluation by your physician. Signatures: Shabana Szymanski, CASTING MACHINE SERVICE OPERATOR-C CASTING MACHINE SERVICE OPERATOR-Ckb Francisco Gonzales MD MD rn Smirch, Shelby, RN RN ss Attema, Lee, RN RN la1 Corrections: (The following items were deleted from the chart) 11:09 11:04 02/10/2019 11:04 Discharged to Home. Impression: Periapical abscess without la1 sinus. Condition is Stable. Forms are Medication Reconciliation Form, Thank You Letter, Antibiotic Education, Prescription Opioid Use. Follow up: Emergency Department; When: As needed; Reason: Worsening of condition. Follow up: Private Physician; When: 2 - 3 days; Reason: Recheck today's complaints, Continuance of care, Re-evaluation by your physician. kb
--- NOTE | 2019-02-10 11:05 | ER ---
Nurse's Notes [facility] Name: Colleen Lee Age: 28 yrs Sex: Female : 1990 Arrival Date: 02/10/2019 Time: 10:14 Bed 14 Private MD: Sourav Ascencio B Diagnosis: Periapical abscess without sinus Presentation: 02/10 10:27 Presenting complaint: Patient states: Dental pain that began yesterday. Transition of ss care: patient was not received from another setting of care. Onset of symptoms was February 09, 2019. Risk Assessment: Do you want to hurt yourself or someone else? Patient reports no desire to harm self or others. Initial Sepsis Screen: Does the patient meet any 2 criteria? No. Patient's initial sepsis screen is negative. Does the patient have a suspected source of infection? No. Patient's initial sepsis screen is negative. Care prior to arrival: None. 10:27 Method Of Arrival: Ambulatory ss 10:27 Acuity: CURTIS 2 ss Historical: - Allergies: 10:28 No Known Allergies; ss - Home Meds: 10:28 None [Active]; ss - PMHx: 10:28 None; ss - PSHx: 10:28 None; ss - Immunization history:: Adult Immunizations up to date. - Social history:: Smoking status: Patient/guardian denies using tobacco. - Ebola Screening: : Patient denies exposure to infectious person Patient denies travel to an Ebola-affected area in the 21 days before illness onset. Screenin:38 Abuse screen: Denies threats or abuse. Nutritional screening: No deficits noted. la1 Tuberculosis screening: No symptoms or risk factors identified. Fall Risk None identified. Assessment: 10:37 General: Appears in no apparent distress. Behavior is calm, cooperative. Neuro: Level la1 of Consciousness is awake, alert, obeys commands, Oriented to person, place, time, situation. Cardiovascular: Capillary refill < 3 seconds Patient's skin is warm and dry. Respiratory: Airway is patent Respiratory effort is even, unlabored, Respiratory pattern is regular, symmetrical. GI: No signs and/or symptoms were reported involving the gastrointestinal system. : No signs and/or symptoms were reported regarding the genitourinary system. Vital Signs: 10:28 BP 169 / 125; Pulse 79; Resp 15; Temp 97.5(TE); Pulse Ox 100% on R/A; Weight 92.99 kg; Height 5 ft. 4 in. (162.56 cm); Pain 10; 11:02 BP 174 / 122; Pulse 69; Resp 16; Pulse Ox 98% on R/A; la1 11:03 BP 146 / 104; la1 10:28 Body Mass Index 35.19 (92.99 kg, 162.56 cm) ED Course: 10:14 Patient arrived in ED. rg4 10:14 Sourav Ascencio MD is Private Physician. rg4 10:19 Shabana Szymanski FNP-C is [facility]. kb 10:19 Francisco Gonzales MD is Attending Physician. kb 10:28 Triage completed. ss 10:28 Trino Fong, RN is Primary Nurse. la1 10:28 Arm band placed on right wrist. ss 10:38 Call light in reach. la1 11:08 No provider procedures requiring assistance completed. Patient did not have IV access la1 during this emergency room visit. Administered Medications: 10:37 Drug: Clindamycin 600 mg Route: PO; la1 11:08 Follow up: Response: No adverse reaction la1 10:37 Drug: TORadol 60 mg Route: IM; Site: right gluteus; la1 11:08 Follow up: Response: No adverse reaction; Pain is decreased la1 Outcome: 11:04 Discharge ordered by . kb 11:08 Discharged to home ambulatory. la1 11:08 Condition: stable 11:08 Discharge instructions given to patient, Instructed on discharge instructions, follow up and referral plans. medication usage, Demonstrated understanding of instructions, follow-up care, medications, Prescriptions given X 1, discussed blood pressure monitoring and reporting to PCP 11:09 Patient left the ED. la1 Signatures: Shabana Szymanski FNP-C FNP-Ckb Smirch, Shelby, RN RN Trino Fong, CLARITA RN Camelia Martinez rg4
== END 2019-02-10 11:09 | disposition home or self-care (01) ==
LOC: ER 10:12
DX: K04.7 Periapical abscess without sinus (principal)
CPT/HCPCS: 96372; 99283